=== PATIENT | female | born 1990 | race Two or more races ===

== ENCOUNTER 2021-08-22 04:30 | Day surgery (SDC) | payer OTHER ==
[2021-08-18 10:50] VITALS: BMI 35.4
[2021-08-22] MEDS ORDERED: IBUPROFEN 800 MG/8 ML IJ IVPB PRN (09:30)
[2021-08-22] MEDS ORDERED: IBUPROFEN 600 MG TABLET (FP) PO PRN (09:30)
[2021-08-22] MEDS ORDERED: ACETAMINOPHEN 325 MG TABLET (FP) PO PRN (09:30)
[2021-08-22] MEDS ORDERED: PROPOFOL 20 ML ONE (09:37)
[2021-08-22] MEDS ORDERED: MIDAZOLAM HCL 2 MG/2 ML SINGLE DOSE VIAL ONE (09:37)
[2021-08-22] MEDS ORDERED: LIDOCAINE HCL/PF 2% SDV 5ML VIAL ONE (09:38)
[2021-08-22] MEDS ORDERED: DEXAMETHASONE SOD PHOSPHATE 4 MG/1 ML VIAL ONE (09:38)
[2021-08-22] MEDS ORDERED: ceFAZolin SODIUM 1 GM VIAL ONE (09:38)
[2021-08-22] MEDS ORDERED: KETOROLAC TROMETHAMINE 30 MG/1 ML VIAL ONE (09:38)
[2021-08-22] MEDS ORDERED: HYDROmorphone HCl 2 MG/ML VIAL ONE (10:14)
[2021-08-22] MEDS ORDERED: ceFAZolin SODIUM 1 GM VIAL IVPB ONE (10:19)
[2021-08-22] MEDS ORDERED: oxyCODONE HCL 5 MG TABLET PO PRN ×2 (10:34)
[2021-08-22] MEDS ORDERED: ONDANSETRON 4 MG/2 ML VIAL IVPUSH PRN (10:34)
[2021-08-22] MEDS ORDERED: ACETAMINOPHEN 1000 MG/100 ML VIAL IVPB ONE ×2 (10:35→14:02)
[2021-08-22] MEDS ORDERED: LACTATED RINGERS SOLUTION 1,000 ML IV SCH (10:45)
[2021-08-22] MEDS ORDERED: ROCURONIUM BROMIDE 50 MG/5 ML SYRINGE ONE (10:48)
[2021-08-22] MEDS ORDERED: BUPIVACAINE HCL/PF 0.5% (5MG/ML) 10 ML VIAL IJ ONE ×2 (11:02→13:20)
[2021-08-22] MEDS ORDERED: ACETAMINOPHEN INJECTION 100 ML IVPB ONE (13:57)
[2021-08-22 14:58] VITALS: TEMP 97.8
[2021-08-22] MEDS ORDERED: ONDANSETRON 4 MG/2 ML VIAL ONE (15:10)
[2021-08-22 16:09] VITALS: BP 114/62; PULSE 86
== END 2021-08-22 15:55 | disposition home or self-care (01) ==
LOC: JASU-SURG 04:30
PROVIDERS: ATTEND Obstetrics & Gynecology
PROC: 0UT04ZZ Resection of Right Ovary, Percutaneous Endoscopic Approach (ICD-10-PCS; principal; 2021-08-22 09:30)
PROC: 0UT54ZZ Resection of Right Fallopian Tube, Percutaneous Endoscopic Approach (ICD-10-PCS; 2021-08-22 09:30)
DX: D27.0 Benign neoplasm of right ovary (principal); I10 Essential (primary) hypertension; E11.9 Type 2 diabetes mellitus without complications; Z79.84 Long term (current) use of oral hypoglycemic drugs
CPT/HCPCS: 36415; 81025; 84703; 86850; 86900; 86901; 88307-TC; 94760; J0131